=== PATIENT | male | born 1975 | race Caucasian/White ===

== ENCOUNTER 2024-11-04 17:43 | Emergency (ER) | payer OTHER | END 2024-11-04 19:50 | disposition home or self-care (01) | LOC: JD.ED 17:43 | DX: S93.401A Sprain of unspecified ligament of right ankle, initial encounter (principal); F17.210 Nicotine dependence, cigarettes, uncomplicated; V29.408A Other motorcycle driver injured in collision with unspecified motor vehicles in traffic accident, initial encounter; Y93.89 Activity, other specified | CPT/HCPCS: 73610-26-RT; 73610-RT; 99284 ==